=== PATIENT | male | born 1980 ===

== ENCOUNTER 2017-04-21 10:35 | Outpatient (CLI) | payer MEDICAID, OTHER | END 2017-04-21 10:36 | disposition home or self-care (01) | LOC: BICRAD 10:35 | PROVIDERS: ATTEND Internal Medicine | DX: M77.32 Calcaneal spur, left foot (principal); I10 Essential (primary) hypertension; M19.072 Primary osteoarthritis, left ankle and foot | CPT/HCPCS: 71046 ==

== ENCOUNTER → 2017-04-28 | Outpatient (CLI) | payer MEDICAID, OTHER | LOC: BICRAD 14:41 | PROVIDERS: ATTEND Internal Medicine | DX: Z02.71 Encounter for disability determination (principal) | CPT/HCPCS: 71046 ==